=== PATIENT | female | born 1935 | race Caucasian/White ===

== ENCOUNTER 2022-04-03 18:06 | Inpatient (IN) ==
[2022-04-03] MEDS ORDERED: SODIUM CHLORIDE 0.9% 500 ML IV STA (18:39)
[2022-04-03 19:57] LABS: Basophils % 0.2 % (0.0-0.8); Eosinophils % 0.1 % (0.00-10.9); Hematocrit 36.2 VOL% (35.7-47.0); Hemoglobin 11.4 GM/DL (12.0-16.0); Immature Granulocytes % 0.6 %; Immature Granulocytes Absolute 0.08 #; Mean Corpuscular HGB Conc 31.5 GM/DL (32-36); Mean Platelet Volume 11.1 FL (9.6-12.0); Monocytes # 1.1 10*3/uL (0.11-0.8); Monocytes % 8.6 % (1.7-12.7); Neutrophils % 82.5 % (38.7-73.9); Platelet Count 201 T/CUMM (130-400); Red Blood Count 3.81 MC/CUMM (3.8-5.5); White Blood Count 12.7 T/CUMM (4-12)
[2022-04-03 20:07] LABS: PT Patient Result 10.6 SECS (10.1-12.1)
[2022-04-03 20:18] LABS: Alanine Aminotransferase < 9 U/L (13-56); Albumin 3.2 G/DL (3.4-5.0); Alkaline Phosphatase 75 U/L (45-117); Aspartate Amino Transferase 22 U/L (0-37); Blood Urea Nitrogen 38 MG/DL (7-18); Calcium 8.7 MG/DL (8.5-10.1); Carbon Dioxide 29 MMOL/L (21-32); Chloride 103 MMOL/L (98-107); Glucose 172 MG/DL (74-106); Osmolality,Calculated 289.5 MOS/KG (273-304); Potassium 4.2 MMOL/L (3.5-5.1); Sodium 139 MMOL/L (136-145); Total Protein 7.3 G/DL (6.4-8.2)
[2022-04-03 20:20] LABS: Amorphous Crystals,Urine Occasional /HPF (Few); Squamous Epithelial Cell,Urine Occasional /HPF (0-10)
[2022-04-03 20:21] LABS: Urine Appearance Slightly Cloudy (Clear); Urine Color Yellow (Yellow)
[2022-04-03 20:22] LABS: Bilirubin,Urine Negative (Negative); Blood, Urine Trace mg/dL (Negative); Glucose,Urine (UA) Negative (Negative); Ketones,Urine Negative (Negative); Nitrite,Urine Negative (Negative); Protein,Urine 30 mg/dL (Negative); Urine Urobilinogen 0.2 eU/dL (<2.0)
[2022-04-03] MEDS ORDERED: PIPERACILLIN/TAZOBACTAM 3,375 MG in SODIUM CHLORIDE 0.9% 100 ML IV STA (21:03)
[2022-04-03] MEDS ORDERED: ONDANSETRON 4 MG/2 ML VIAL IV PRN (21:57)
[2022-04-03] MEDS ORDERED: hydrALAZINE 20 MG/1 ML VIAL IV PRN (21:57)
[2022-04-03] MEDS ORDERED: SODIUM CHLORIDE 0.9% 1,000 ML IV SCH (22:30)
[2022-04-04] MEDS ORDERED: GLUCAGON 1 MG VIAL IM PRN (02:26)
[2022-04-04] MEDS ORDERED: DEXTROSE 10% 250 ML BAG IV PRN (02:26)
[2022-04-04] MEDS: ACETAMINOPHEN 325 MG TABLET PO PRN ×2 (02:59→21:06)
[2022-04-04 04:57] LABS: Basophils % 0.4 % (0.0-0.8); Eosinophils % 0.1 % (0.00-10.9); Hematocrit 34.7 VOL% (35.7-47.0); Hemoglobin 10.7 GM/DL (12.0-16.0); Immature Granulocytes % 0.5 %; Immature Granulocytes Absolute 0.05 #; Lymphocytes # 1.3 10*3/uL (1.4-4.0); Lymphocytes % 11.6 % (21.3-54.2); Mean Corpuscular HGB Conc 30.8 GM/DL (32-36); Mean Corpuscular Volume 96.4 FL (87-102); Mean Platelet Volume 11.5 FL (9.6-12.0); Monocytes # 0.8 10*3/uL (0.11-0.8); Monocytes % 7.4 % (1.7-12.7); Platelet Count 161 T/CUMM (130-400); Red Cell Distribution Width 13.9 % (9.3-17.3)
[2022-04-04 05:25] LABS: Calcium 8.9 MG/DL (8.5-10.1); Osmolality,Calculated 282.8 MOS/KG (273-304); Potassium 3.8 MMOL/L (3.5-5.1)
[2022-04-04] MEDS: METOPROLOL SUCCINATE XL 25 MG TABLET PO SCH (10:30)
[2022-04-04] MEDS: FLECAINIDE 50 MG TABLET PO SCH ×2 (10:30→21:03)
[2022-04-04] MEDS: CARBIDOPA/LEVODOPA 25-100 MG TABLET PO SCH ×3 (10:31→21:03)
[2022-04-04] MEDS: ASCORBIC ACID 500 MG TABLET PO SCH (10:31)
[2022-04-04] MEDS: PANTOPRAZOLE 40 MG TABLET PO SCH (10:31)
[2022-04-04] MEDS: INSULIN LISPRO 100 UNIT/ML SUBCUT SCH ×4 (10:49→21:03)
[2022-04-04] MEDS: PIPERACILLIN/TAZOBACTAM 3,375 MG in SODIUM CHLORIDE 0.9% 100 ML IV SCH (21:01)
[2022-04-04] MEDS: SERTRALINE 25 MG TABLET PO SCH (21:03)
[2022-04-05] MEDS: ACETAMINOPHEN 325 MG TABLET PO PRN (01:14)
[2022-04-05] MEDS: PIPERACILLIN/TAZOBACTAM 3,375 MG in SODIUM CHLORIDE 0.9% 100 ML IV SCH ×3 (04:07→20:14)
[2022-04-05 05:46] LABS: Basophils % 0.4 % (0.0-0.8); Eosinophils % 0.4 % (0.00-10.9); Hematocrit 32.1 VOL% (35.7-47.0); Hemoglobin 10.3 GM/DL (12.0-16.0); Immature Granulocytes % 0.2 %; Immature Granulocytes Absolute 0.02 #; Lymphocytes # 1.5 10*3/uL (1.4-4.0); Lymphocytes % 18.2 % (21.3-54.2); Mean Corpuscular HGB Conc 32.1 GM/DL (32-36); Mean Corpuscular Volume 95.5 FL (87-102); Neutrophils % 68.8 % (38.7-73.9); Platelet Count 187 T/CUMM (130-400); Red Blood Count 3.36 MC/CUMM (3.8-5.5); Red Cell Distribution Width 13.8 % (9.3-17.3)
[2022-04-05 06:09] LABS: Calcium 8.5 MG/DL (8.5-10.1); Osmolality,Calculated 291.1 MOS/KG (273-304); Potassium 3.1 MMOL/L (3.5-5.1)
[2022-04-05] MEDS: INSULIN LISPRO 100 UNIT/ML SUBCUT SCH ×4 (08:29→20:43)
[2022-04-05] MEDS: FLECAINIDE 50 MG TABLET PO SCH ×2 (09:16→20:14)
[2022-04-05] MEDS: CARBIDOPA/LEVODOPA 25-100 MG TABLET PO SCH ×3 (09:16→20:14)
[2022-04-05] MEDS: PANTOPRAZOLE 40 MG TABLET PO SCH (09:16)
[2022-04-05] MEDS: ASCORBIC ACID 500 MG TABLET PO SCH (09:17)
[2022-04-05] MEDS: METOPROLOL SUCCINATE XL 25 MG TABLET PO SCH (09:17)
[2022-04-05] MEDS: POTASSIUM CHLORIDE INJ 20 MEQ in LACTATED RINGERS 1,000 ML IV SCH (10:33)
[2022-04-05] MEDS: SERTRALINE 25 MG TABLET PO SCH (20:14)
[2022-04-06] MEDS: PIPERACILLIN/TAZOBACTAM 3,375 MG in SODIUM CHLORIDE 0.9% 100 ML IV SCH ×3 (03:54→20:48)
[2022-04-06 05:20] LABS: Basophils % 0.4 % (0.0-0.8); Eosinophils # 0.1 10*3/uL (0.0-0.87); Eosinophils % 0.9 % (0.00-10.9); Hematocrit 30.4 VOL% (35.7-47.0); Hemoglobin 9.5 GM/DL (12.0-16.0); Immature Granulocytes % 0.4 %; Immature Granulocytes Absolute 0.03 #; Lymphocytes # 1.4 10*3/uL (1.4-4.0); Lymphocytes % 17.7 % (21.3-54.2); Mean Corpuscular HGB Conc 31.3 GM/DL (32-36); Mean Corpuscular Volume 94.1 FL (87-102); Mean Platelet Volume 10.8 FL (9.6-12.0); Monocytes # 0.8 10*3/uL (0.11-0.8); Monocytes % 10.6 % (1.7-12.7); Platelet Count 196 T/CUMM (130-400); Red Blood Count 3.23 MC/CUMM (3.8-5.5); Red Cell Distribution Width 13.8 % (9.3-17.3); White Blood Count 7.7 T/CUMM (4-12)
[2022-04-06 05:43] LABS: Calcium 8.6 MG/DL (8.5-10.1); Osmolality,Calculated 282.4 MOS/KG (273-304); Potassium 3.5 MMOL/L (3.5-5.1)
[2022-04-06] MEDS: POTASSIUM CHLORIDE INJ 20 MEQ in LACTATED RINGERS 1,000 ML IV SCH (07:17)
[2022-04-06] MEDS: INSULIN LISPRO 100 UNIT/ML SUBCUT SCH ×4 (09:25→20:50)
[2022-04-06] MEDS: FLECAINIDE 50 MG TABLET PO SCH ×2 (09:26→20:49)
[2022-04-06] MEDS: CARBIDOPA/LEVODOPA 25-100 MG TABLET PO SCH ×3 (09:26→21:36)
[2022-04-06] MEDS: METOPROLOL SUCCINATE XL 25 MG TABLET PO SCH (09:26)
[2022-04-06] MEDS: ASCORBIC ACID 500 MG TABLET PO SCH (09:26)
[2022-04-06] MEDS: PANTOPRAZOLE 40 MG TABLET PO SCH (09:26)
[2022-04-06] MEDS: SERTRALINE 25 MG TABLET PO SCH (20:49)
[2022-04-07] MEDS: PIPERACILLIN/TAZOBACTAM 3,375 MG in SODIUM CHLORIDE 0.9% 100 ML IV SCH (04:50)
[2022-04-07 06:22] LABS: Basophils % 0.3 % (0.0-0.8); Eosinophils # 0.1 10*3/uL (0.0-0.87); Eosinophils % 0.5 % (0.00-10.9); Hematocrit 29.5 VOL% (35.7-47.0); Hemoglobin 9.3 GM/DL (12.0-16.0); Immature Granulocytes % 0.5 %; Immature Granulocytes Absolute 0.05 #; Lymphocytes # 1.5 10*3/uL (1.4-4.0); Lymphocytes % 14.6 % (21.3-54.2); Mean Corpuscular HGB Conc 31.5 GM/DL (32-36); Mean Corpuscular Volume 95.2 FL (87-102); Mean Platelet Volume 11.3 FL (9.6-12.0); Monocytes # 0.9 10*3/uL (0.11-0.8); Monocytes % 8.9 % (1.7-12.7); Neutrophils % 75.2 % (38.7-73.9); Platelet Count 181 T/CUMM (130-400); Red Cell Distribution Width 13.5 % (9.3-17.3)
[2022-04-07 06:33] LABS: Calcium 8.4 MG/DL (8.5-10.1); Osmolality,Calculated 277.7 MOS/KG (273-304); Potassium 3.8 MMOL/L (3.5-5.1)
[2022-04-07] MEDS: INSULIN LISPRO 100 UNIT/ML SUBCUT SCH ×2 (07:26→13:29)
[2022-04-07] MEDS: POTASSIUM CHLORIDE INJ 20 MEQ in LACTATED RINGERS 1,000 ML IV SCH (07:44)
[2022-04-07] MEDS: FLECAINIDE 50 MG TABLET PO SCH (09:17)
[2022-04-07] MEDS: CARBIDOPA/LEVODOPA 25-100 MG TABLET PO SCH (09:17)
[2022-04-07] MEDS: PANTOPRAZOLE 40 MG TABLET PO SCH (09:17)
[2022-04-07] MEDS: ASCORBIC ACID 500 MG TABLET PO SCH (09:17)
[2022-04-07] MEDS: METOPROLOL SUCCINATE XL 25 MG TABLET PO SCH (09:17)
[2022-04-07] MEDS ORDERED: cefTRIAXone 1,000 MG in SODIUM CHLORIDE 0.9% 100 ML IV SCH (12:00)
[2022-04-07 15:56] VITALS: BP 106/47
== END 2022-04-07 17:05 | DRG 871 ==
LOC: N.3E 18:06 → N.ED 18:06 → N.3E 04-04 02:09
PROVIDERS: ADMIT Family Medicine; ATTEND Family Medicine